=== PATIENT | female | born 1960 | race Caucasian/White ===

== ENCOUNTER 2017-07-16 00:44 | Emergency (ER) | payer BC ==
[2017-07-16] MEDS ORDERED: Ondansetron 4 MG/2 ML SDV IVPUSH ONE (01:33)
--- NOTE | 2017-07-16 02:11 | EDM.PDOC ---
ED HPI GENERAL MEDICAL PROBLEM - General Chief Complaint: Abdominal Pain Stated Complaint: ABDOMINAL PAIN Time Seen by Provider: 07/16/17 01:00 Source of Information: Reports: Patient, Family () History Limitations: Reports: No Limitations - History of Present Illness INITIAL COMMENTS - FREE TEXT/NARRATIVE: The patient states that she was woken with epigastric pain around 00:30 this morning. She is unable to describe the pain other than it is "weird", a tingling /burning sensation. She also has tingling and numbness to both of her upper extremities, and her throat feels tight. She has nausea, but no emesis. She states that when she is walking, it feels like her legs are made of rubber. She denies chest pain. No perioral or facial tingling. No lower abdominal pain. No prior similar symptoms. In the ED, it is noted that the patient's oxygen saturation is 100% on room air. The patient's PCP is Dr. Vargas. Epigastric Pain Score (Numeric/FACES): 5 - Related Data Allergies Allergy/AdvReac Type Severity Reaction Status Date / Time codeine Allergy Stomach Verified 08/05/13 06:45 Upset Past Medical History Cardiovascular History: Reports: High Cholesterol, Other (See Below) ( Palpitations NOS) - Past Surgical History HEENT Surgical History: Reports: Tonsillectomy, Other (See Below) (Facial plastic surgery) Musculoskeletal Surgical History: Reports: Shoulder Surgery (left, arthroscopic) Social & Family History - Family History Family Medical History: Noncontributory - Tobacco Use Smoking Status *Q: Former Smoker Years of Tobacco use: 11 Packs/Tins Daily: 1 Month/Year Tobacco Last Used: Quit 1983 - Alcohol Use Alcohol Use History: Yes Alcohol Use Frequency: Socially - Recreational Drug Use Recreational Drug Use: Yes Drug Use in Last 12 Months: No Recreational Drug Type: Reports: Marijuana/Hashish (last around 1979) - Living Situation & Occupation Living situation: Reports: , with Spouse Occupation: Unemployed ED ROS GENERAL - Review of Systems Review Of Systems: ROS reveals no pertinent complaints other than HPI. ED EXAM, GENERAL - Physical Exam Exam: See Below Exam Limited By: No Limitations General Appearance: Alert, WD/WN, Anxious Eye Exam: Bilateral Eye: Normal Inspection Ears: Normal External Exam, Hearing Grossly Normal Nose: Normal Inspection, No Blood Throat/Mouth: Normal Inspection, Normal Lips, Normal Voice, No Airway Compromise Head: Atraumatic, Normocephalic Neck: Normal Inspection, Full Range of Motion Respiratory/Chest: No Respiratory Distress, Lungs Clear, Normal Breath Sounds, No Accessory Muscle Use, Chest Non-Tender Cardiovascular: Normal Peripheral Pulses, Regular Rate, Rhythm, No Gallop, No JVD, No Murmur, No Rub Peripheral Pulses: 4+: Radial (L), Radial (R) GI/Abdominal: Normal Bowel Sounds, Soft, Non-Tender (including to the epigastric area), No Organomegaly, No Distention, No Abnormal Bruit, No Mass (Female) Exam: Deferred Rectal (Female) Exam: Deferred Extremities: Normal Inspection, Normal Range of Motion, No Pedal Edema, Normal Capillary Refill Neurological: Alert, Oriented, Normal Cognition, No Motor/Sensory Deficits Psychiatric: Anxious Skin Exam: Warm, Dry, Intact, Normal Color, No Rash EKG INTERPRETATION EKG Date: 07/16/17 Time: 01:05 Rhythm: Other (Sinus bradycardia) Rate (Beats/Min): 59 [place]: Normal P-Wave: Present QRS: Normal ST-T: Normal QT: Prolonged (579 ms) Comparison: No Change (08/05/2013) Course - Vital Signs Last Recorded V/S: Last Vital Signs Temp 36.0 C 07/16/17 00:54 Pulse 59 L 07/16/17 00:54 Resp 16 07/16/17 00:54 BP 109/64 07/16/17 00:54 Pulse Ox 100 07/16/17 00:54 - Orders/Labs/Meds Orders: Active Orders 24 hr Category Date Time Status EKG 12 Lead [EKG Documentation Completion] [RC] STAT Care 07/16/17 01:07 Active Chest 2V [CR] Stat Exams 07/16/17 01:12 Taken PRO B-TYPE NATRIUR PEPT,BNPPRO [CHEM] Stat Lab 07/16/17 00:58 Received UA W/MICROSCOPIC [URIN] Stat Lab 07/16/17 02:10 Ordered Labs: Laboratory Tests 07/16/17 07/16/17 07/16/17 Range/Units 00:58 00:58 00:58 WBC 9.13 (3.98-10.04) K/mm3 RBC 4.73 (3.98-5.22) M/mm3 Hgb 13.6 (11.2-15.7) gm/L Hct 41.3 (34.1-44.9) % MCV 87.3 (79.4-94.8) fl MCH 28.8 (25.6-32.2) pg MCHC 32.9 (32.2-35.5) g/dl RDW Std Deviation 40.5 (36.4-46.3) fL Plt Count 347 (182-369) K/mm3 MPV 9.7 (9.4-12.3) fl Neutrophils % (Manual) 47 (40-60) % Band Neutrophils % 0 (0-10) % Lymphocytes % (Manual) 44 H (20-40) % Atypical Lymphs % 0 % Monocytes % (Manual) 5 (2-10) % Eosinophils % (Manual) 2 (0.7-5.8) % Basophils % (Manual) 2 H (0.1-1.2) Platelet Estimate Adequate RBC Morph Comment Normal PT 10.2 (9.5-12.1) SECONDS INR 0.93 APTT 25 (24-31) SECONDS D-Dimer, Quantitative 0.33 (0.19-0.50) mg/L Puncture Site ABG pH (7.35-7.45) ABG pCO2 (35.0-45.0) mmHg ABG pO2 (80.0-100.0) mmHg ABG HCO3 (22.0-26.0) meq/L ABG O2 Saturation (96.0-97.0) % ABG Base Excess (-2-2.0) Pedrito Test A-a Gradient mmHg O2 Delivery Device Oxygen Flow Rate FiO2 (21.00-100.00) % Sodium 142 (136-145) mEq/L Potassium 3.5 (3.5-5.1) mEq/L Chloride 105 (98-107) mEq/L Carbon Dioxide 27 (21-32) mEq/L Anion Gap 13.5 (5-15) BUN 20 H (7-18) mg/dL Creatinine 0.9 (0.55-1.02) mg/dL Est Cr Clr Drug Dosing 58.84 mL/min Estimated GFR (MDRD) > 60 (>60) mL/min BUN/Creatinine Ratio 22.2 H (14-18) Glucose 126 H (74-106) mg/dL Calcium 9.3 (8.5-10.1) mg/dL Magnesium 2.1 (1.8-2.4) mg/dl Total Bilirubin 0.4 (0.2-1.0) mg/dL AST 21 (15-37) U/L ALT 36 (14-59) U/L Alkaline Phosphatase 70 (46-116) U/L Troponin I < 0.017 (0.00-0.056) ng/mL Total Protein 7.3 (6.4-8.2) g/dl Albumin 3.8 (3.4-5.0) g/dl Globulin 3.5 gm/dL Albumin/Globulin Ratio 1.1 (1-2) Lipase 133 (73-393) U/L TSH 3rd Generation 7.838 H (0.358-3.74) uIU/mL Urine Color (Yellow) Urine Appearance (Clear) Urine pH (5.0-8.0) Ur Specific [place] (1.005-1.030) Urine Protein (Negative) Urine Glucose (UA) (Negative) Urine Ketones (Negative) Urine Occult Blood (Negative) Urine Nitrite (Negative) Urine Bilirubin (Negative) Urine Urobilinogen (0.2-1.0) Ur Leukocyte Esterase (Negative) Urine RBC (0-5) /hpf Urine WBC (0-5) /hpf Ur Epithelial Cells (0-5) /hpf Urine Bacteria (FEW) /hpf Hyaline Casts (0-5) /lpf Urine Mucus (FEW) /hpf 07/16/17 07/16/17 Range/Units 01:12 02:10 WBC (3.98-10.04) K/mm3 RBC (3.98-5.22) M/mm3 Hgb (11.2-15.7) gm/L Hct (34.1-44.9) % MCV (79.4-94.8) fl MCH (25.6-32.2) pg MCHC (32.2-35.5) g/dl RDW Std Deviation (36.4-46.3) fL Plt Count (182-369) K/mm3 MPV (9.4-12.3) fl Neutrophils % (Manual) (40-60) % Band Neutrophils % (0-10) % Lymphocytes % (Manual) (20-40) % Atypical Lymphs % % Monocytes % (Manual) (2-10) % Eosinophils % (Manual) (0.7-5.8) % Basophils % (Manual) (0.1-1.2) Platelet Estimate RBC Morph Comment PT (9.5-12.1) SECONDS INR APTT (24-31) SECONDS D-Dimer, Quantitative (0.19-0.50) mg/L Puncture Site Rt radial ABG pH 7.43 (7.35-7.45) ABG pCO2 36.7 (35.0-45.0) mmHg ABG pO2 66.0 L (80.0-100.0) mmHg ABG HCO3 24.1 (22.0-26.0) meq/L ABG O2 Saturation 91.1 L (96.0-97.0) % ABG Base Excess 0.6 (-2-2.0) Pedrito Test Positive A-a Gradient 22 mmHg O2 Delivery Device Room air Oxygen Flow Rate 0.0 FiO2 21.00 (21.00-100.00) % Sodium (136-145) mEq/L Potassium (3.5-5.1) mEq/L Chloride (98-107) mEq/L Carbon Dioxide (21-32) mEq/L Anion Gap (5-15) BUN (7-18) mg/dL Creatinine (0.55-1.02) mg/dL Est Cr Clr Drug Dosing mL/min Estimated GFR (MDRD) (>60) mL/min BUN/Creatinine Ratio (14-18) Glucose (74-106) mg/dL Calcium (8.5-10.1) mg/dL Magnesium (1.8-2.4) mg/dl Total Bilirubin (0.2-1.0) mg/dL AST (15-37) U/L ALT (14-59) U/L Alkaline Phosphatase (46-116) U/L Troponin I (0.00-0.056) ng/mL Total Protein (6.4-8.2) g/dl Albumin (3.4-5.0) g/dl Globulin gm/dL Albumin/Globulin Ratio (1-2) Lipase (73-393) U/L TSH 3rd Generation (0.358-3.74) uIU/mL Urine Color Yellow (Yellow) Urine Appearance Slt cloudy H (Clear) Urine pH 7.0 (5.0-8.0) Ur Specific [place] 1.025 (1.005-1.030) Urine Protein 1+ H (Negative) Urine Glucose (UA) Negative (Negative) Urine Ketones Negative (Negative) Urine Occult Blood Negative (Negative) Urine Nitrite Negative (Negative) Urine Bilirubin Negative (Negative) Urine Urobilinogen 0.2 (0.2-1.0) Ur Leukocyte Esterase Negative (Negative) Urine RBC 0-5 (0-5) /hpf Urine WBC 0-5 (0-5) /hpf Ur Epithelial Cells 5-10 H (0-5) /hpf Urine Bacteria Few (FEW) /hpf Hyaline Casts 0-5 (0-5) /lpf Urine Mucus Moderate H (FEW) /hpf Meds: Medications Discontinued Medications Generic Name Dose Route Start Last Admin Trade Name Freq PRN Reason Stop Dose Admin Ondansetron HCl 4 mg 07/16/17 01:33 07/16/17 01:36 Zofran IVPUSH 07/16/17 01:34 4 mg ONETIME ONE Administration - Re-Assessments/Exams Free Text/Narrative Re-Assessment/Exam: 07/16/17 01:50 2-view chest radiograph appears to be grossly normal. Cardiac silhouette is within normal limits. No pulmonary vascular congestion. No pleural effusions. No focal infiltrate. No pneumothorax. Formal read per the Radiologist pending. 07/16/17 03:00 Test results discussed with the patient and her . The patient states that she is feeling back to normal. The patient's oxygen saturation was noted to be 100% on room air when she presented. This is consistent with hyperventilation. Hyperventilation is usually caused by anxiety, but it also be caused by a number of medical conditions. Today's workup evaluated the patient for such medical conditions, as well as an evaluation for pancreatitis. Her entire workup was unremarkable, with the exception of her TSH being found to be significantly elevated at 7.838 , consistent with hypothyroidism. It is most likely than, that the patient's hyperventilation was due to anxiety, which could also explain the tingling and burning sensation that she felt in her upper abdomen, bilateral upper extremities, as well as the throat tightness. It is also possible course, that the patient may have experienced biliary colic, although none of her workup tonight suggested that. I recommended that the patient follow-up with her PCP, Dr. Vargas, to recheck her TSH, and treat for hypothyroidism, if confirmed. If her epigastric pain recurs, Dr. Vargas could also order a workup for biliary disease. Departure - Departure Time of Disposition: 03:03 Disposition: Home, Self-Care 01 Condition: Good Clinical Impression: Hyperventilation syndrome, Epigastric abdominal pain of unknown etiology, Elevated TSH - Discharge Information Instructions: Abdominal Pain, Adult, Hyperventilation Referrals: Burt Vargas MD [Primary Care Provider] - Forms: ED Department Discharge Additional Instructions: You were seen in the emergency room for upper central abdominal pain, along with tingling and numbness of your upper extremities and throat tightness. Workup in the ER included blood work, an arterial blood gas, a urinalysis, a chest x-ray, and an ECG. Your entire workup was unremarkable, with the exception of your TSH being found to be elevated, consistent with hypothyroidism. The cause of your symptoms is not entirely clear, but is likely due to anxiety. Follow-up with your PCP, Dr. Vargas, to evaluate your elevated TSH level. Additionally, if your abdominal pain recurs, Dr. Vargas may want to order an evaluation for biliary disease. If any other problems, please do not hesitate to return to the ER. - My Orders Last 24 Hours: My Active Orders 07/16/17 00:58 PRO B-TYPE NATRIUR PEPT,BNPPRO [CHEM] Stat 07/16/17 01:07 EKG 12 Lead [EKG Documentation Completion] [RC] STAT 07/16/17 01:12 Chest 2V [CR] Stat 07/16/17 02:10 UA W/MICROSCOPIC [URIN] Stat - Assessment/Plan Last 24 Hours: My Active Orders 07/16/17 00:58 PRO B-TYPE NATRIUR PEPT,BNPPRO [CHEM] Stat 07/16/17 01:07 EKG 12 Lead [EKG Documentation Completion] [RC] STAT 07/16/17 01:12 Chest 2V [CR] Stat 07/16/17 02:10 UA W/MICROSCOPIC [URIN] Stat
--- NOTE | 2017-07-17 10:21 | CR ---
Chest: Two views of the chest were obtained. Comparison: Prior chest x-ray of 07/27/13. Heart size appears within normal limits. Tortuous thoracic aorta is seen. Lungs are clear with no acute parenchymal change. Bony structures appear within normal limits for the patient's age. Impression: 1. Nothing acute is seen on two-view chest x-ray. Diagnostic code #2
== END 2017-07-16 03:15 | disposition home or self-care (01) ==
LOC: JD.ED 00:44
DX: R10.13 Epigastric pain (principal); F45.8 Other somatoform disorders; R94.6 Abnormal results of thyroid function studies; Z87.891 Personal history of nicotine dependence; Z88.5 Allergy status to narcotic agent
CPT/HCPCS: 36415; 36600; 71046; 80053; 81001; 82803; 83690; 83735; 83880; 84443; 84484; 85025; 85379; 85610; 85730; 93005; 96374; 99284; J2405; 93010